=== PATIENT | female | born 1995 | race Two or more races ===

== ENCOUNTER 2018-02-10 23:28 | Emergency (ER) | payer OTHER ==
[~2018-02-10] VITALS: Ht 162.6 cm; Wt 59.0 kg
[2018-02-11] MEDS ORDERED: AMOX-CLAV 875-1 EACH PO (01:09)
== END 2018-02-11 01:15 | disposition home or self-care (01) ==
LOC: ER 23:28
DX: J03.80 Acute tonsillitis due to other specified organisms (principal)